=== PATIENT | male | born 1985 | race Caucasian/White ===

== ENCOUNTER 2021-01-18 14:33 | Emergency (ER) | payer MEDICAID ==
[~2021-01-18] VITALS: Ht 182.9 cm; Wt 109.1 kg
[~2021-01-18 14:33] MED LIST: NO HOME MEDS; PROM25TA14 PO
[2021-01-18 14:41] VITALS: BP 132/87
[2021-01-18] MEDS ORDERED: CIPR10DR LEFT EAR (15:40)
== END 2021-01-18 15:49 | disposition home or self-care (01) ==
LOC: ER 14:33
DX: H60.93 Unspecified otitis externa, bilateral (principal); H61.23 Impacted cerumen, bilateral; H92.03 Otalgia, bilateral; F41.9 Anxiety disorder, unspecified; F31.9 Bipolar disorder, unspecified; F12.90 Cannabis use, unspecified, uncomplicated; Z60.2 Problems related to living alone; Z88.0 Allergy status to penicillin; Z79.2 Long term (current) use of antibiotics
CPT/HCPCS: 69209; 99283

== ENCOUNTER 2021-11-14 14:08 | Emergency (ER) | payer MEDICAID ==
[~2021-11-14] VITALS: Ht 182.9 cm; Wt 118.2 kg
[2021-11-14] MEDS ORDERED: ondansetron/PF 4mg/2ml inj IV ONE (14:25)
[2021-11-14] MEDS ORDERED: normal saline 1000ML IV soln IVB ONE (14:25)
[2021-11-14] MEDS ORDERED: ondansetron 4mg rapidly disintigrating tab PO ONE (14:35)
[2021-11-14 14:38] LABS: BASOPHILS # (AUTO) 0.1 X10'3 (0-0.2); BASOPHILS % (AUTO) 0.5 % (0-1); EOSINOPHILS # (AUTO) 0.1 X10'3 (0-0.9); EOSINOPHILS % (AUTO) 1.3 % (0-6); HEMATOCRIT 45.2 % (42.0-52.0); HEMOGLOBIN 15.6 g/dl (14.0-17.9); LYMPHOCYTES # (AUTO) 1.5 X10'3 (1.1-4.8); LYMPHOCYTES % (AUTO) 15.5 % (21-51); MEAN CORPUSCULAR HEMOGLOBIN 29.6 PG (27.0-31.0); MEAN CORPUSCULAR HGB CONC 34.6 g/dL (33.0-36.5); MEAN CORPUSCULAR VOLUME 85.7 FL (78-98); MEAN PLATELET VOLUME 8.9 FL (7.4-10.4); MONOCYTES # (AUTO) 0.7 X10'3 (0-0.9); MONOCYTES % (AUTO) 7.5 % (2-12); NEUTROPHILS # (AUTO) 7.2 X10'3 (1.8-7.7); NEUTROPHILS % (AUTO) 75.2 % (42-75); PLATELET COUNT 266 X10'3 (140-440); RED BLOOD COUNT 5.27 X10'6 (4.70-6.10); RED CELL DISTRIBUTION WIDTH 12.9 % (11.5-14.5); WHITE BLOOD COUNT 9.5 X10'3 (4.5-11.0)
[2021-11-14 14:41] VITALS: BP 126/93
[2021-11-14 14:52] LABS: ALANINE AMINOTRANSFERASE 64 U/L (12-78); ALBUMIN 4.8 G/DL (3.4-5.0); ALBUMIN/GLOBULIN RATIO 1.5 (1.1-1.5); ALKALINE PHOSPHATASE 75 IU/L (46-116); ANION GAP 12 (8-16); ASPARTATE AMINO TRANSFERASE 40 U/L (10-37); BILIRUBIN,TOTAL 0.8 MG/DL (0.1-1.0); BLOOD UREA NITROGEN 11 MG/DL (7-18); CALCIUM 9.5 MG/DL (8.5-10.1); CHLORIDE 103 MMOL/L (99-107); CREATININE 1.37 MG/DL (0.60-1.10); GLUCOSE 117 MG/DL (70-104); LIPASE 97 U/L (73-393); POTASSIUM 4.1 MMOL/L (3.5-5.1); SODIUM 138 MMOL/L (135-145); TOTAL CARBON DIOXIDE 23.3 MMOL/L (24-32); TOTAL PROTEIN 8.1 G/DL (6.4-8.2); eGFR 59 ML/MIN
[2021-11-14] MEDS ORDERED: ONDA4TAB12 PO (16:21)
== END 2021-11-14 16:40 | disposition home or self-care (01) ==
LOC: ER 14:10
DX: K29.00 Acute gastritis without bleeding (principal); R05.9 Cough, unspecified; R11.2 Nausea with vomiting, unspecified; F41.9 Anxiety disorder, unspecified; F31.9 Bipolar disorder, unspecified; F12.90 Cannabis use, unspecified, uncomplicated; Z60.2 Problems related to living alone; Z88.0 Allergy status to penicillin; Z79.899 Other long term (current) drug therapy
CPT/HCPCS: 36415; 80053; 83690; 85025; 99283

== ENCOUNTER 2021-11-24 04:26 | Emergency (ER) | payer MEDICAID ==
[~2021-11-24] VITALS: Ht 182.9 cm; Wt 115.0 kg
[~2021-11-24 04:26] MED LIST changes: +ONDA4TAB12 PO
[2021-11-24 04:37] VITALS: BP 129/83
== END 2021-11-24 08:44 | disposition left against medical advice (07) ==
LOC: ER 04:26
DX: J02.9 Acute pharyngitis, unspecified (principal); Z53.21 Procedure and treatment not carried out due to patient leaving prior to being seen by health care provider

== ENCOUNTER 2022-04-08 15:08 | Emergency (ER) | payer MEDICAID ==
[~2022-04-08] VITALS: Ht 182.9 cm; Wt 113.0 kg
[2022-04-08 15:37] VITALS: BP 149/104
[2022-04-08] MEDS ORDERED: ipratropium/albuterol 3ml nebule NEB ONE (15:40)
[2022-04-08] MEDS ORDERED: normal saline 1000ML IV soln IVB ONE (15:40)
[2022-04-08] MEDS ORDERED: methylPREDNISolone sod succ 125mg/2ml vial IV ONE (15:40)
[2022-04-08] MEDS ORDERED: methylPREDNISolone sod succ 125mg/2ml vial ONE (15:56)
[2022-04-08] MEDS ORDERED: ALBU6.7H9 INH (15:56)
== END 2022-04-08 16:15 | disposition home or self-care (01) ==
LOC: ER 15:10
DX: J68.9 Unspecified respiratory condition due to chemicals, gases, fumes and vapors (principal); J45.909 Unspecified asthma, uncomplicated; F41.9 Anxiety disorder, unspecified; F31.9 Bipolar disorder, unspecified; F12.90 Cannabis use, unspecified, uncomplicated; Z60.2 Problems related to living alone; Z88.0 Allergy status to penicillin; Z91.030 Bee allergy status; Z79.899 Other long term (current) drug therapy
CPT/HCPCS: 71045; 94640; 96374; 96375; 99284; J2930; J7030; 94760

== ENCOUNTER 2022-12-02 16:41 | Emergency (ER) | payer MEDICAID ==
[~2022-12-02] VITALS: Ht 182.9 cm; Wt 106.8 kg
[~2022-12-02 16:41] MED LIST changes: +ALBU6.7H14 INH
--- NOTE | 2022-12-02 17:06 | NUR ---
POISON CONTROL CALLED AND NOTIFIFED THAT PT HAS TAKEN 15-150MG TRAZADONE, 1-1MG CLONAPIN AND 2-30MG BUSPAR IN AN ATTEMPTED SUICIDE. RECOMMENDATIONS FOLLOW: PT WILL BE LETHARGIC WATCH FOR BRADYCARDIA AND HYPOTENTION MONITOR AND OBSERVE FOR 6-8- HRS EKG AND WATCH FOR QT ELONGATION LAB: CBC, CMP. TOX SCREEN, ASA AND TYLENOL LEVELS. NO FURTHER RECOMMENDATIONS WERE GIVEN AT THIS TIME.
--- NOTE | 2022-12-02 17:39 | NUR ---
Pt arrived here very drowsy but able to respond to verbal command. During screening, patient admitted feeling depressed and has suicidal thoughts. Prior to arrival, patient took several pills (i.e, Trazadone, buspar, and clonopin). Pt hooked to vital signs monitor. Belongings placed in the belonging bag and bottle of Trazadone and Buspar was taken away from the patient. Pt's medication sent to hospital pharmacy.
[2022-12-02 17:48] LABS: BASOPHILS % (AUTO) 0.4 % (0-1); EOSINOPHILS # (AUTO) 0.2 X10'3 (0-0.9); EOSINOPHILS % (AUTO) 2.6 % (0-6); HEMATOCRIT 44.4 % (42.0-52.0); HEMOGLOBIN 15.2 g/dl (14.0-17.9); LYMPHOCYTES # (AUTO) 2.1 X10'3 (1.1-4.8); LYMPHOCYTES % (AUTO) 30.7 % (21-51); MEAN CORPUSCULAR HEMOGLOBIN 29.4 PG (27.0-31.0); MEAN CORPUSCULAR HGB CONC 34.1 g/dL (33.0-36.5); MEAN CORPUSCULAR VOLUME 86.3 FL (78-98); MEAN PLATELET VOLUME 9.4 FL (7.4-10.4); MONOCYTES # (AUTO) 0.5 X10'3 (0-0.9); MONOCYTES % (AUTO) 7.8 % (2-12); NEUTROPHILS # (AUTO) 4.1 X10'3 (1.8-7.7); NEUTROPHILS % (AUTO) 58.5 % (42-75); PLATELET COUNT 217 X10'3 (140-440); RED BLOOD COUNT 5.15 X10'6 (4.70-6.10)
[2022-12-02 17:49] LABS: ALANINE AMINOTRANSFERASE 26 U/L (12-78); ALBUMIN 4.2 G/DL (3.4-5.0); ALBUMIN/GLOBULIN RATIO 1.3 (1.1-1.5); ALKALINE PHOSPHATASE 84 IU/L (46-116); ANION GAP 6 (8-16); ASPARTATE AMINO TRANSFERASE 21 U/L (10-37); BILIRUBIN,TOTAL 0.7 MG/DL (0.1-1.0); BLOOD UREA NITROGEN 8 MG/DL (7-18); BUN/CREATININE RATIO 6.4 (5.4-32.0); CALCIUM 8.4 MG/DL (8.5-10.1); CHLORIDE 101 MMOL/L (99-107); CREATININE 1.25 MG/DL (0.60-1.10); ETHANOL < 0.010 GM/DL (0.0-0.010); GLUCOSE 135 MG/DL (70-104); POTASSIUM 3.7 MMOL/L (3.5-5.1); SODIUM 136 MMOL/L (135-145); TOTAL PROTEIN 7.4 G/DL (6.4-8.2); eGFR 66 ML/MIN
[2022-12-02 17:51] LABS: ACETAMINOPHEN < 2.0 UG/ML (10-30)
--- NOTE | 2022-12-02 18:01 | NUR ---
Pt moved to bed 6 from bed 12. Pt was instructed that we will need urine sample when urinate. Urinal provided.
--- NOTE | 2022-12-02 19:35 | NUR ---
Patient awake, up to RR, UA collected and sent. patient requests a pillow, this was provided. No other needs verbalized. patient maintained on cardiac, spo2, nibp monitoring.
[2022-12-02 20:34] LABS: URINE AMPHETAMINE SCREEN NEGATIVE (Neg); URINE BARBITUATE SCREEN NEGATIVE (Neg); URINE BENZODIAZEPINES SCREEN NEGATIVE (Neg); URINE CANNABINOID SCREEN NEGATIVE (Neg); URINE COCAINE SCREEN NEGATIVE (Neg); URINE METHADONE SCREEN NEGATIVE (Neg); URINE OPIATE SCREEN NEGATIVE (Neg); URINE PHENCYCLIDINE SCREEN NEGATIVE (Neg)
--- NOTE | 2022-12-02 21:42 | NUR ---
Patient awake at this time, no distress noted. Patient requests something to eat and drink. These were provided at this time.
--- NOTE | 2022-12-02 23:27 | NUR ---
Patient awake, remains calm. Patient requesting phone to call his . Patient aware he is on mental health hold. VS updated.
--- NOTE | 2022-12-03 03:53 | NUR ---
Patient awake at this time, no distress noted. Patient given more water per request. Up sitting with legs over edge of bed.
--- NOTE | 2022-12-03 04:35 | NUR ---
VS updated. Patient up to RR, given a comb per request, denies need for other hygiene items. patient back in room and sitting.
--- NOTE | 2022-12-03 05:16 | NUR ---
Patient self repositioning in bed at this time. 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
--- NOTE | 2022-12-03 07:14 | NUR ---
Report given to me by Genaro COLLIER. Patient room changed from 6 to 14 near nurses station.
[2022-12-03 09:58] VITALS: BP 105/69
== END 2022-12-03 12:24 | disposition home or self-care (01) ==
LOC: ER 16:42
DX: T14.91XA Suicide attempt, initial encounter (principal); F32.9 Major depressive disorder, single episode, unspecified; F41.9 Anxiety disorder, unspecified; F12.90 Cannabis use, unspecified, uncomplicated; Z60.2 Problems related to living alone; Z88.0 Allergy status to penicillin; Z91.030 Bee allergy status; Z79.899 Other long term (current) drug therapy; Y92.89 Other specified places as the place of occurrence of the external cause
CPT/HCPCS: 36415; 80053; 80305; 80320; 80329; 85025; 93005; 99285

== ENCOUNTER 2024-01-10 20:49 | Emergency (ER) | payer MEDICAID ==
[~2024-01-10] VITALS: Ht 180.3 cm; Wt 100.0 kg
[2024-01-10 20:55] VITALS: BP 138/100; PULSE 63; RESP 16; TEMP 98.6; O2SAT 99
[2024-01-10] MEDS ORDERED: LIT300C PO (20:58)
== END 2024-01-10 21:10 | disposition home or self-care (01) ==
LOC: ER 20:50
DX: F32.A Depression, unspecified (principal); Z76.0 Encounter for issue of repeat prescription; F41.9 Anxiety disorder, unspecified; F12.90 Cannabis use, unspecified, uncomplicated; Z88.0 Allergy status to penicillin; Z91.030 Bee allergy status; Z79.899 Other long term (current) drug therapy
CPT/HCPCS: 99281

== ENCOUNTER 2024-05-15 01:55 | Emergency (ER) | payer MEDICAID ==
[~2024-05-15] VITALS: Ht 180.3 cm; Wt 100.0 kg
[~2024-05-15 01:55] MED LIST changes: +LIT300C PO; +ONDA-243 PO; -ONDA4TAB12 PO
[2024-05-15 03:28] VITALS: TEMP 98.4
[2024-05-15 06:22] LABS: BASOPHILS % (AUTO) 0.4 % (0-1); EOSINOPHILS # (AUTO) 0.4 X10'3 (0-0.9); EOSINOPHILS % (AUTO) 4.8 % (0-6); HEMATOCRIT 41.6 % (42.0-52.0); HEMOGLOBIN 13.8 g/dl (14.0-17.9); LYMPHOCYTES % (AUTO) 22.6 % (21-51); MEAN CORPUSCULAR HEMOGLOBIN 29.1 PG (27.0-31.0); MEAN CORPUSCULAR HGB CONC 33.1 g/dL (33.0-36.5); MEAN CORPUSCULAR VOLUME 87.9 FL (78-98); MEAN PLATELET VOLUME 9.6 FL (7.4-10.4); MONOCYTES # (AUTO) 0.6 X10'3 (0-0.9); MONOCYTES % (AUTO) 6.6 % (2-12); NEUTROPHILS # (AUTO) 5.9 X10'3 (1.8-7.7); NEUTROPHILS % (AUTO) 65.6 % (42-75); PLATELET COUNT 268 X10'3 (140-440); RED BLOOD COUNT 4.73 X10'6 (4.70-6.10); RED CELL DISTRIBUTION WIDTH 13.4 % (11.5-14.5)
[2024-05-15 06:27] LABS: ALANINE AMINOTRANSFERASE 33 U/L (12-78); ALBUMIN 4.1 G/DL (3.4-5.0); ALBUMIN/GLOBULIN RATIO 1.2 (1.1-1.5); ALKALINE PHOSPHATASE 90 IU/L (46-116); ANION GAP 8 (8-16); ASPARTATE AMINO TRANSFERASE 20 U/L (10-37); BILIRUBIN,TOTAL 0.5 MG/DL (0.1-1.0); BLOOD UREA NITROGEN 8 MG/DL (7-18); BUN/CREATININE RATIO 7.4 (10.0-20.0); CALCIUM 8.8 MG/DL (8.5-10.1); CHLORIDE 107 MMOL/L (99-107); CREATININE 1.08 MG/DL (0.60-1.10); GLUCOSE 110 MG/DL (70-104); POTASSIUM 3.9 MMOL/L (3.5-5.1); SODIUM 140 MMOL/L (135-145); TOTAL CARBON DIOXIDE 24.8 MMOL/L (24-32); TOTAL PROTEIN 7.4 G/DL (6.4-8.2); eCRCL 101 ML/MIN; eGFR 77 ML/MIN
[2024-05-15 06:51] VITALS: BP 138/91; PULSE 69; RESP 18; O2SAT 97
== END 2024-05-15 06:53 | disposition home or self-care (01) ==
LOC: ER 01:55
DX: L29.8 Other pruritus (principal); F41.9 Anxiety disorder, unspecified; F32.A Depression, unspecified; F29 Unspecified psychosis not due to a substance or known physiological condition; F12.90 Cannabis use, unspecified, uncomplicated; Z60.2 Problems related to living alone; Z88.0 Allergy status to penicillin; Z91.030 Bee allergy status; Z79.899 Other long term (current) drug therapy
CPT/HCPCS: 36415; 80053; 85025; 99283

== ENCOUNTER 2024-09-20 11:14 | Emergency (ER) | payer MEDICAID ==
[~2024-09-20] VITALS: Ht 180.3 cm; Wt 107.3 kg
[2024-09-20] MEDS ORDERED: CLIN-197 PO (13:09)
[2024-09-20] MEDS ORDERED: HYDR-3965 PO ×2 (13:09→13:10)
[2024-09-20 13:14] VITALS: BP 144/72; PULSE 70; RESP 16; TEMP 98.4; O2SAT 99
== END 2024-09-20 13:16 | disposition home or self-care (01) ==
LOC: ER 11:15
DX: K02.9 Dental caries, unspecified (principal); K08.89 Other specified disorders of teeth and supporting structures; F31.9 Bipolar disorder, unspecified; F12.90 Cannabis use, unspecified, uncomplicated; Z88.0 Allergy status to penicillin; Z91.030 Bee allergy status; Z79.899 Other long term (current) drug therapy
CPT/HCPCS: 99283

== ENCOUNTER 2024-12-28 22:09 | Emergency (ER) | payer MEDICAID ==
[2024-12-28 22:10] VITALS: BP 145/87; PULSE 97; RESP 15; TEMP 98.6; O2SAT 97
[2024-12-28] MEDS ORDERED: AZIT-164 PO (23:10)
== END 2024-12-28 23:12 | disposition home or self-care (01) ==
LOC: ER 22:10
DX: J22 Unspecified acute lower respiratory infection (principal); F31.9 Bipolar disorder, unspecified; F41.9 Anxiety disorder, unspecified; F12.90 Cannabis use, unspecified, uncomplicated; Z20.822 Contact with and (suspected) exposure to COVID-19; Z88.0 Allergy status to penicillin; Z91.030 Bee allergy status
CPT/HCPCS: 36415; 71045; 87502; 87503; 87811; 99284

== ENCOUNTER 2025-05-24 14:40 | Emergency (ER) | payer MEDICAID ==
[~2025-05-24] VITALS: Ht 180.3 cm; Wt 118.4 kg
[2025-05-24 15:32] LABS: MEAN PLATELET VOLUME 9.1 FL (7.4-10.4); RED CELL DISTRIBUTION WIDTH 13.6 % (11.5-14.5)
[2025-05-24 15:40] LABS: CREATININE 0.99 MG/DL (0.60-1.10); TOTAL CARBON DIOXIDE 22.9 MMOL/L (24-32); eCRCL 109 ML/MIN; eGFR 85 ML/MIN
[2025-05-24 16:14] LABS: LEUKOCYTE ESTERASE ,URINE NEGATIVE (Neg); NITRITES, URINE NEGATIVE (Neg); OCCULT BLOOD,URINE NEGATIVE (Neg)
[2025-05-24 16:19] LABS: UA COLLECTION TYPE CLN CATCH MIDSTREAM
[2025-05-24 17:50] VITALS: TEMP 98.3
--- NOTE | 2025-05-24 17:50 | RADIOLOGY REPORT ---
CHEST RADIOGRAPH Indication: SOB Technique: Single frontal view of the chest was obtained Comparison: DI CHEST,SINGLE VIEW on DOS: 12/28/24, CHEST,SINGLE VIEW on DOS: 04/08/22 FINDINGS: Lines and Tubes: None Lungs: No focal consolidation. Pleura: No effusion. No pneumothorax. Cardiomediastinal contours: Unremarkable Bones: No acute osseous abnormality. IMPRESSION: No acute cardiopulmonary disease.
--- NOTE | 2025-05-24 17:53 | Physician Documentation ---
History of Present Illness ~ Chief Complaint: Allergic Reaction Stated Complaint: EXPOSURE Time Seen by MD: 15:46 Primary Medical Doctor: SHIV Source: patient Mode of Arrival: POV Exam Limitations: no limitations HPI Chief Complaint: Allergy Caveat: None Independent Historians: None History of Present Illness: Patient is a 39-year-old man who believes he has been exposed to a mold that is causing his fatigue, shortness for breath and tingling of his extremities and hands and feet. He has been having these symptoms for one year and they have gotten worse over the last 1-2 years. Patient has blood work and a chest x-ray scheduled for tomorrow from his primary care doctor. No fever. No cough. Review of systems: All systems were reviewed and are negative except for what is indicated in the history of present illness. Past Medical History: None Past Surgical History: None Social History: Denies tobacco use, denies alcohol or drug use Medications: Reviewed as documented Nursing Notes Allergies: Reviewed as documented in Nursing Notes Medication Reconciliation Allergies: Coded Allergies: Penicillins (Verified Allergy, Unknown, 05/15/24) bee venom protein (honey bee) (Unverified Allergy, Unknown, 05/15/24) Scheduled Albuterol Sulfate (Proventil Hfa), 2 PUFFS INH Q6H [place] Carbonate (LITHIUM CARBONATE tablet), 2 TAB PO Q12H Scheduled PRN ONDANSETRON ODT 4mg tablet (Ondansetron Odt), 1 TABLET PO Q6H PRN for rema sea/vomiting Promethazine HCl (Promethazine HCl), 25 MG PO Q6H PRN Miscellaneous Medications Home Med List (No Home Medications), (Reported) Past Medical History Past Medical History: Thyroid (unspecified), Anxiety, Bipolar, Depression, Psychosis Past Surgical History: no surgical history Smoking Status: Never smoker Alcohol Use: None Drug Use: marijuana Lives with: Alone Lives In: Home Occupation: employed Review of Systems All Other Systems at this time: Reviewed and Negative ROS Patient denies any other acute symptoms other than above. All other systems are negative Physical Exam Vital Signs: RN Vital Signs have been reviewed: Yes, Temperature: 98.3, Source: Temporal, Heart Rate: 81, Respiratory Rate: 16, BP: 148/96, Pulse Oximetry: 95, Weight: 118.400 Oxygen Flow Rate: 0 Pulse Oximetry Reflects: adequate oxygenation Physical Exam General Appearance: No distress HEENT: Normal OP, moist oral mucosa, PERRL, EOMI Neck: supple, normal ROM, trachea midline Pulmonary: No respiratory distress, CTA, BS equal Cardiac: RRR, no murmur, rub or gallop, GI: nondistended, soft, nontender, normal bowel sounds, no guarding, no rebound Extremities: normal ROM, no swelling, non-tender Skin: intact, dry, warm, no rashes Neuro: AAOx3, speech is clear, no focal motor weakness Psych: normal affect, good eye contact, no apparent hallucination, normal speech Progress Results/Orders Results/Orders Orders - OSMAR WASHINGTON MD Chest,Single View (05/24/25 17:30) Completed Orders - OSMAR WASHINGTON MD Urinalysis, Cult If Indicated (05/24/25 14:50) Cbc/Diff (05/24/25 14:50) Lipase (05/24/25 14:50) CMP (05/24/25 14:50) Chest,Single View (05/24/25 17:30) Vital Signs 05/24/25 05/24/25 05/24/25 05/24/25 14:47 15:53 16:10 17:50 Temp 98.3 98.3 98.3 Pulse 89 81 73 Resp 18 14 16 13 B/P (MAP) 166/100 148/96 (113) 142/101 (115) Pulse Ox 99 95 97 O2 Flow Rate 0 0 0 Laboratory Tests Test 05/24/25 15:07 05/24/25 15:50 White Blood Count 7.8 Red Blood Count 5.47 Hemoglobin 15.5 Hematocrit 45.5 Mean Corpuscular Volume 83.2 Mean Corpuscular Hemoglobin 28.4 Mean Corpuscular Hemoglobin Concent 34.1 Red Cell Distribution Width 13.6 Platelet Count 259 Mean Platelet Volume 9.1 Neutrophils (%) (Auto) 58.9 Lymphocytes (%) (Auto) 25.3 Monocytes (%) (Auto) 9.7 Eosinophils (%) (Auto) 5.3 Basophils (%) (Auto) 0.8 Neutrophils # (Auto) 4.6 Lymphocytes # (Auto) 2.0 Monocytes # (Auto) 0.8 Eosinophils # (Auto) 0.4 Basophils # (Auto) 0.1 CBC Comment Sodium Level 137 Potassium Level 4.0 Chloride Level 105 Carbon Dioxide Level 22.9 L Anion Gap 9 Blood Urea Nitrogen 13 Creatinine 0.99 Estimated GFR/1.73 m2 85 BUN/Creatinine Ratio 13.1 Glucose Level 104 Calcium Level 8.5 Total Bilirubin 0.4 Aspartate Amino Transf (AST/SGOT) 46 H Alanine Aminotransferase (ALT/SGPT) 59 Alkaline Phosphatase 100 Total Protein 7.2 Albumin 3.9 Globulin 3.3 Albumin/Globulin Ratio 1.2 Lipase 32 Chemistry Comments Urine Specimen Description Cln catch midstream Urine Color Yellow Urine Clarity Clear Urine pH 6.0 Urine Specific [place] 1.020 Urine Protein Negative Urine Glucose (UA) Negative Urine Ketones Negative Urine Occult Blood Negative Urine Nitrite Negative Urine Bilirubin Negative Urine Urobilinogen 0.2 Urine Leukocyte Esterase Negative Urine Culture Indicated Not ind Volume Urine Centrifuged 10 ml Urine Comment Medical Decision Making Findings Differential diagnosis includes but is not limited to: Mold exposure, pneumonia, autoimmune illness Chest x-ray, single view, indication: Shortness a breath Impression: No acute cardiopulmonary process, lungs are clear, normal mediastinum, normal cardiac silhouette Laboratory data independent interpretation: CBC: Normal CMP: Normal, AST just above normal at 46 Emergency department course/medical decision-making: Patient presents with chronic symptoms. Lab work and chest x-ray are unrem arkable. Recommend he follow up with his primary care doctor. Has a normal physical exam and pulmonary exam. Patient isn't hypoxic. Patient is stable for discharge. There is no evidence of a medical or surgical emergency. Departure Time of Disposition: 17:48 Disposition: 01 HOME / SELF CARE / HOMELESS Impression: Primary Impression: Dyspnea Qualified Codes: R06.09 - Other forms of dyspnea Additional Impressions: Mold exposure Fatigue Qualified Codes: R53.83 - Other fatigue Condition: Stable Discharge Instructions: Fatigue, Shortness of Breath, Adult, [id number] Additional Instructions: FOLLOW UP WITH YOUR PRIMARY CARE DOCTOR FOR EVALUATION OF YOUR MOLD EXPOSURE. SOMETHING ELSE IS MORE LIKELY CAUSING YOUR SYMPTOMS AND NOT MOLD EXPOSURE. RECOMMEND YOUR PRIMARY CARE DOCTOR DUE A FURTHER WORKUP AND RECOMMEND REFERRAL TO A MANAGER SMALL BUSINESS. Education Educated: Patient Educated regarding: diagnosis, treatment, need for follow up Signature Scribe Signature: No scribe Attestation: No scribe OSMAR WASHINGTON MD May 24, 2025 17:53
[2025-05-24 17:56] VITALS: BP 141/103; PULSE 61; RESP 14; O2SAT 98
== END 2025-05-24 18:08 | disposition home or self-care (01) ==
LOC: ER 14:41
DX: R06.00 Dyspnea, unspecified (principal); R53.83 Other fatigue; F12.90 Cannabis use, unspecified, uncomplicated; F31.9 Bipolar disorder, unspecified; F41.9 Anxiety disorder, unspecified; Z77.120 Contact with and (suspected) exposure to mold (toxic); Z88.0 Allergy status to penicillin; Z91.030 Bee allergy status
CPT/HCPCS: 36415; 71045; 80053; 81003; 83690; 85025; 99284